=== PATIENT | male | born 1965 | race Caucasian/White ===

== ENCOUNTER → 2017-11-28 | Outpatient (CLI) | payer OTHER ==
[~2017-11-28] MED LIST: OXYC-57
[2017-11-28 13:44] LABS: HEMOGLOBIN A1C 6.4 % (4.5-5.6)
[2017-11-28 14:04] LABS: ALT/SGPT 33 U/L (12-78); AST/SGOT 27 U/L (15-37); BLOOD UREA NITROGEN 18 mg/dl (7-18); CARBON DIOXIDE 27 mmol/L (21-32); CHOLESTEROL 149 mg/dl (0-200); CREATININE 1.11 mg/dl (0.60-1.40); GLUCOSE 98 mg/dl (70-99); POTASSIUM 3.8 mmol/L (3.5-5.1); SODIUM 141 mmol/L (136-145)
[2017-11-28 14:14] LABS: ALKALINE PHOSPHATASE 55 U/L (45-117); LDL CHOLESTEROL CALCULATED 98 mg/dl; TOTAL PROTEIN 7.3 gm/dl (6.4-8.2)
== END | disposition home or self-care (01) ==
LOC: C.LABBFT 07:47
PROVIDERS: ATTEND Physician Assistant Medical
DX: E11.9 Type 2 diabetes mellitus without complications (principal)